=== PATIENT | male | born 1950 | race Caucasian/White ===

== ENCOUNTER → 2017-03-14 | Day surgery (SDC) | payer BC ==
[~2017-03-14] MED LIST: Midazolam 1 MG/ML 2 ML SDV ONE; Propofol 200 MG/20 ML SDV ONE; Sodium Chloride 0.9% 1,000 ML IV SCH; fentaNYL 100 MCG/2 ML SDV ONE
--- NOTE | 2017-03-14 11:21 | OR ---
DATE OF PROCEDURE: 03/14/2017 PROCEDURE: EGD. FINDINGS: 1. Inflammation with multiple tongues of reflux consistent with reflux disease at the GE junction. 2. No other abnormalities. COMPLICATIONS: None. MEDICAL TECHNOLOGIST CHEMISTRY: None. ANESTHESIA: MAC. RISKS: Risks, benefits, alternatives, and limitations including, but not limited to infection, bleeding, and perforation were explained to the patient, who wished to proceed. PREOPERATIVE DIAGNOSIS: Epigastric pain. POSTOPERATIVE DIAGNOSIS: Epigastric pain. PROCEDURE IN DETAIL: The patient was placed in left lateral decubitus position. The EGD scope was introduced and advanced into the duodenum. There was no abnormality. No duodenitis, no ulceration, and no gastritis. On retroflex, no abnormalities. At the GE junction, the patient had inflammation consistent with reflux disease. This was biopsied x6 in 4 quadrants. The remainder of the esophagus was normal. The patient tolerated the procedure well. James Hall MD /[id number]
== END ==
LOC: JP.SDS 07:52
PROVIDERS: ATTEND Surgery
DX: K29.50 Unspecified chronic gastritis without bleeding (principal); K21.0 Gastro-esophageal reflux disease with esophagitis; I10 Essential (primary) hypertension; G47.33 Obstructive sleep apnea (adult) (pediatric); E11.9 Type 2 diabetes mellitus without complications; E66.9 Obesity, unspecified; Z87.891 Personal history of nicotine dependence; Z88.8 Allergy status to other drugs, medicaments and biological substances
CPT/HCPCS: 43239; 88305; 88312; J2250; J2704; J3010; J7040; J7030

== ENCOUNTER 2021-11-21 13:46 | Emergency (ER) | payer MEDICARE, BC ==
[2021-11-21] MEDS ORDERED: fentaNYL 100 MCG/2 ML SDV ONE (15:00)
[2021-11-21] MEDS ORDERED: Sodium Chloride 0.9% 1,000 ML IV ONE (15:00)
[2021-11-21] MEDS ORDERED: Ondansetron 4 MG/2 ML SDV ONE (15:00)
[2021-11-21] MEDS ORDERED: Iopamidol 612 MG/ML 100 ML Bottle IV SCH (16:00)
[2021-11-21] MEDS ORDERED: cefTRIAXone 1 GM in Sodium Chloride 0.9% 50 ML IV ONE (18:22)
[2021-12-15 15:42] LABS: ESTIMATED GFR 71 mL/min (>60)
[2021-12-15 15:44] LABS: TROPONIN I HIGH SENSITIVITY 11.1 pg/mL (<=60.3)
== END 2021-11-21 18:31 | disposition home or self-care (01) ==
LOC: JP.ED 13:46
DX: J18.9 Pneumonia, unspecified organism (principal); I10 Essential (primary) hypertension; E11.9 Type 2 diabetes mellitus without complications
CPT/HCPCS: 36415; 74177; 80053; 81001; 83605; 83690; 84145; 84484; 85025; 96361; 96374; 96375; 99284; J0696; J2405; J3010; J7030; Q9967

== ENCOUNTER 2023-07-03 07:59 | Day surgery (SDC) | payer MEDICARE, BC ==
[2023-07-03] MEDS: Sodium Chloride 0.9% 1,000 ML IV SCH (09:26)
[2023-07-03] MEDS ORDERED: fentaNYL 50 MCG/ML SDV ONE (10:10)
[2023-07-03] MEDS ORDERED: Propofol 200 MG/20 ML SDV ONE ×2 (10:10→10:47)
== END 2023-07-03 12:20 | disposition home or self-care (01) ==
LOC: JP.SDS 07:59
PROVIDERS: ATTEND Surgery
DX: Z12.11 Encounter for screening for malignant neoplasm of colon (principal); D12.2 Benign neoplasm of ascending colon; D12.5 Benign neoplasm of sigmoid colon; D12.8 Benign neoplasm of rectum; K64.4 Residual hemorrhoidal skin tags; I10 Essential (primary) hypertension; K21.9 Gastro-esophageal reflux disease without esophagitis; E11.9 Type 2 diabetes mellitus without complications; F17.200 Nicotine dependence, unspecified, uncomplicated; Z88.8 Allergy status to other drugs, medicaments and biological substances
CPT/HCPCS: 45380; 45385; J2704; J3010; J7030; 00811-QZ; 88305

== ENCOUNTER 2024-03-02 06:43 | Day surgery (SDC) | payer MEDICARE, BC ==
[2024-03-02] MEDS ORDERED: fentaNYL 50 MCG/ML SDV ONE (07:08)
[2024-03-02] MEDS ORDERED: Propofol 200 MG/20 ML SDV ONE ×2 (07:08→09:05)
[2024-03-02] MEDS: Lactated Ringers 1,000 ML IV SCH (07:47)
== END 2024-03-02 10:35 | disposition home or self-care (01) ==
LOC: JP.SDS 06:43
PROVIDERS: ATTEND Surgery
DX: Z12.11 Encounter for screening for malignant neoplasm of colon (principal); D12.2 Benign neoplasm of ascending colon; D12.3 Benign neoplasm of transverse colon; D12.8 Benign neoplasm of rectum; K29.50 Unspecified chronic gastritis without bleeding; K22.10 Ulcer of esophagus without bleeding; K21.00 Gastro-esophageal reflux disease with esophagitis, without bleeding; I10 Essential (primary) hypertension; I25.10 Atherosclerotic heart disease of native coronary artery without angina pectoris; E11.9 Type 2 diabetes mellitus without complications
CPT/HCPCS: 00813; 43239; 45380; 45385; 88305; 88312; 88341; 88342; J2704; J3010; J7120

== ENCOUNTER → 2024-05-11 | Day surgery (SDC) | payer MEDICARE, BC ==
[~2024-05-11] MED LIST changes: -Midazolam 1 MG/ML 2 ML SDV ONE; -Sodium Chloride 0.9% 1,000 ML IV SCH
[2024-05-11] MEDS: Lactated Ringers 1,000 ML IV SCH (08:28)
== END ==
LOC: JP.SDS 07:29
PROVIDERS: ATTEND Surgery
DX: K31.89 Other diseases of stomach and duodenum (principal); I10 Essential (primary) hypertension; E78.5 Hyperlipidemia, unspecified; E66.9 Obesity, unspecified; E11.9 Type 2 diabetes mellitus without complications; Z87.11 Personal history of peptic ulcer disease
CPT/HCPCS: 00731; 43239; J2704; J3010; J7120

== ENCOUNTER 2025-01-22 07:18 | Day surgery (SDC) | payer MEDICARE, BC ==
[2025-01-22] MEDS: Lactated Ringers 1,000 ML IV SCH (07:51)
== END 2025-01-22 08:35 | disposition home or self-care (01) ==
LOC: JP.SDS 07:18
PROVIDERS: ATTEND Surgery
DX: L03.119 Cellulitis of unspecified part of limb (principal); I10 Essential (primary) hypertension; E11.9 Type 2 diabetes mellitus without complications; Z88.8 Allergy status to other drugs, medicaments and biological substances; Z79.84 Long term (current) use of oral hypoglycemic drugs; Z79.82 Long term (current) use of aspirin; Z79.899 Other long term (current) drug therapy; Z53.8 Procedure and treatment not carried out for other reasons
CPT/HCPCS: J7120

== ENCOUNTER 2025-01-27 10:17 | Emergency (ER) | payer MEDICARE, BC ==
[2025-01-27 10:53] LABS: BASOPHILS PERCENT AUTO 0.2 % (0.1-1.3); EOSINOPHILS ABSOLUTE AUTO 0.12 K/uL (0.00-0.40); EOSINOPHILS PERCENT AUTO 1.3 % (0.0-5.4); IMMATURE GRAN ABSOLUTE AUTO 0.04 K/uL (0.00-0.23); IMMATURE GRAN PERCENT AUTO 0.4 % (0.0-0.7); LYMPHOCYTES ABSOLUTE AUTO 1.38 K/uL (0.8-3.3); LYMPHOCYTES PERCENT AUTO 14.4 % (11.4-47.7); MONOCYTES ABSOLUTE AUTO 1.20 K/uL (0.20-0.90); MONOCYTES PERCENT AUTO 12.5 % (3.3-12.6); NEUTROPHILS ABSOLUTE AUTO 6.81 K/uL (1.0-7.6); NEUTROPHILS PERCENT AUTO 71.2 % (40.0-78.1); PLATELET COUNT,PLT 267 K/uL (130-375); RED BLOOD CELL COUNT 3.59 M/uL (4.14-5.76); WHITE BLOOD CELL COUNT,WBC 9.6 K/uL (3.2-11.0)
[2025-01-27 10:54] LABS: BASOPHILS ABSOLUTE AUTO 0.02 K/uL (0.00-0.10)
[2025-01-27 11:14] LABS: A/G RATIO 0.9 (1.2-2.2); ALANINE AMINOTRANSFERASE,ALT 15 U/L (12-78); ASPARTATE AMNIOTRANSFERASE,AST 23 U/L (15-37); BILIRUBIN TOTAL 0.6 mg/dL (0.2-1.0); BLOOD UREA NITROGEN,BUN 33 mg/dL (7-18); CARBON DIOXIDE,CO2 25 mmol/L (21-32); CHLORIDE,CL 104 mmol/L (100-108); CREATININE 1.9 mg/dL (0.8-1.3); EST CRCL DRUG DOSING (CG) 33.08 mL/min; ESTIMATED GFR 36 mL/min (>60); GLUCOSE RANDOM 165 mg/dL (74-106); POTASSIUM,K 4.7 mmol/L (3.6-5.2); PROTEIN TOTAL,TP 6.9 g/dL (6.4-8.2); SODIUM,NA 141 mmol/L (140-148)
[2025-01-27 13:09] LABS: APPEARANCE,URINE CLEAR (CLEAR); GLUCOSE,URINE NEGATIVE (NEGATIVE); OCCULT BLOOD,URINE NEGATIVE (NEGATIVE)
[2025-01-27 13:22] LABS: SQUAMOUS EPITHELIAL CELLS,UR FEW /HPF; UROTHELIAL CELLS,URINE NOT SEEN /HPF
== END 2025-01-27 13:45 | disposition home or self-care (01) ==
LOC: JP.ED 10:17
DX: R41.0 Disorientation, unspecified (principal); E11.9 Type 2 diabetes mellitus without complications; M19.90 Unspecified osteoarthritis, unspecified site; K21.9 Gastro-esophageal reflux disease without esophagitis; I10 Essential (primary) hypertension; E78.00 Pure hypercholesterolemia, unspecified; Z88.8 Allergy status to other drugs, medicaments and biological substances; Z79.84 Long term (current) use of oral hypoglycemic drugs; Z79.899 Other long term (current) drug therapy; Z79.82 Long term (current) use of aspirin; Z90.89 Acquired absence of other organs; Z90.49 Acquired absence of other specified parts of digestive tract
CPT/HCPCS: 36415; 70450; 70450-26; 80053; 81001; 85025; 86140; 99285